=== PATIENT | male | born 1995 | race Caucasian/White ===

== ENCOUNTER 2025-06-23 12:21 | Emergency (ER) | payer SELFPAY ==
--- NOTE | ~2025-06-23 | XR_ITS ---
CLINICAL HISTORY: dizziness lightheadedness Two views of the chest. COMPARISON: None provided. FINDINGS: Normal heart and mediastinal contours. No consolidation. No pleural effusion or pneumothorax. No acute fracture. IMPRESSION: 1. No consolidation. This document has been electronically signed by: Robbin Gilbert MD on 06/23/2025 13:38:39
--- NOTE | 2025-06-23 12:23 | ECG_ITS ---
Test Reason : DIZZINESS Blood Pressure : */* mmHG Vent. Rate : 95 BPM Atrial Rate : 95 BPM P-R Int : 132 ms QRS Dur : 78 ms QT Int : 314 ms P-R-T Axes : 78 86 34 degrees QTcB Int : 394 ms Normal sinus rhythm T wave abnormality, consider inferior ischemia Abnormal ECG No previous ECGs available Referred By: Generic ED Physician Electronically Signed By: David Nunn
--- NOTE | 2025-06-23 12:46 | ED.GENADULT ---
HPI - General Adult General Chief complaint: Dizziness Stated complaint: dizzy, faint, severe anxiety Time Seen by Provider: 06/23/25 13:48 Source: patient, RN notes reviewed and old records reviewed Mode of arrival: ambulatory Limitations: no limitations History of Present Illness ED Provider: Justin [facility] narrative: Patient is a 30-year-old male with history of anxiety presenting to the emergency department with complaint of lightheadedness which began around 930 this morning. He admits to drinking a 6 pack of beer while out in the [employer] yesterday. Also had heavier drinking over the weekend. 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 Denies any recent tick bites or rashes. States he is unsure how much his anxiety is contributing to his symptoms. Was recently prescribed medication for his anxiety but it caused GI upset so he has not been taking his prescriber to change medications for managing his anxiety. He denies any chest pain or palpitations. Denies fevers. Denies body aches or joint pain. States symptoms feel similar to previous episodes of dehydration. MD complaint: lightheaded Onset (ago): hour(s) Related Data Allergies Allergy/AdvReac Type Severity Reaction Status Date / Time No Known Allergies Allergy Verified 06/23/25 12:48 Review of Systems Review of Systems: As per HPI Yes all other systems are reviewed and are negative Constitutional: Constitutional: Reports as per HPI [facility] Social History Social History Alcohol intake: current Smoked in Last 30 Days: No Use of substances other than those prescribed or required for medical reasons: No Advance Directives: No Advance Directives Information Provided: Yes Do you have a plan to hurt others: No Plan Physical Exam ED Vital Signs: Vital Signs - 24 hr 06/23/25 12:47 06/23/25 14:27 06/23/25 15:03 Temperature 97.3 F 98.5 F Pulse Rate 80 73 78 Respiratory Rate 14 16 18 Blood Pressure 132/78 127/79 119/72 Pulse Oximetry 97 99 98 Oxygen Delivery Method Room Air Room Air Room Air BMI result Body Mass Index 21.3 Vital signs have been reviewed and appear to be correct. Blood pressure normal. Heart rate normal. Respiratory rate normal. Temperature normal. Oxygen saturation normal. Const General: cooperative, healthy appearing and no acute distress Orientation/consciousness: oriented to person, oriented to place, oriented to time and patient oriented x3 Limitations: no limitations [facility] Head: Yes normocephalic and Yes atraumatic Ears: external ears normal General nose exam: Normal external nose present Face and sinus: Yes face symmetric Mouth: oropharynx normal and moist mucous membranes Throat: Yes uvula midline Eyes Pupils: Equal, round and reactive pupils present Neck Neck: Yes normal visual inspection and Yes supple Resp Effort & Inspection: normal respiratory effort and able to speak in complete sentences Auscultation: clear to auscultation bilaterally Cardio Rate: regular rate Rhythm: regular rhythm Heart sounds: S1 normal heart sound present and S2 normal heart sound present GI Palpation (GI): Soft to palpation and nontender Auscultation: normoactive bowel sounds General: Yes no CVA tenderness Back/Spine/Pelvis Back: no CVA tenderness Skin General skin exam: elasticity normal and turgor normal Neuro General: oriented to person, oriented to place, oriented to time, patient oriented x3, moves all extremities, no focal motor deficits and CN's II-XI intact bilaterally Cranial nerves: Yes Equal, round and reactive pupils present Cognition (Neuro): normal cognition Extrem General: Yes full ROM, Yes no pedal edema and Yes no calf tenderness Psych Mental Status: mental status grossly normal Affect: normal affect Thought process: Normal thought process present Course Course Course Narrative: Rapid medical examination performed in triage by Danielle Nichols PA-C. Patient is a 30 year old assigned male at presenting to the emergency department with dizziness and lightheadedness. Patient states starting this morning he began to feel dizzy / lightheaded. Patient denies any pain. States that he has not eaten much today and does endorse drinking a 6 pack of beer yesterday so he is concerned he may be dehydrated. Detailed physical exam and review of systems are deferred to the child daycare worker. EKG, labs, swabs, and imaging ordered. Patient placed back in the waiting room pending room availability and results. Medications Administered Discontinued Medications Generic Name Dose Route Start Last Admin Trade Name Freq PRN Reason Stop Dose Admin Hydroxyzine HCl 25 mg 06/23/25 14:38 06/23/25 15:02 Hydroxyzine Hcl 25 Mg Tablet PO 06/23/25 14:39 25 mg ONCE ONE Administration Sodium Chloride 1,000 mls @ 999 mls/hr 06/23/25 14:15 06/23/25 15:02 Ns IV 06/23/25 15:15 0 mls/hr .Q1H1M BI Infusion Medical Decision Making Medical Decision Making [facility] Narrative: Patient is a 30-year-old male with history of anxiety presenting to the emergency department with complaint of lightheadedness which began around 930 this morning. On exam patient is awake, A+Ox3, VS WNL, afebrile, normal neurological exam without focal deficits, physical exam findings as above. Given reported symptoms and physical exam findings, initial differential includes but is not limited to cardiac arrhythmia, anemia, electrolyte abnormality, dehydration. Less likely tick-borne illness but will check tick panel while patient is here in the ED given his high rate of exposure. Patient requesting medication for anxiety, will order hydroxyzine. Labs notable for mildly elevated transaminases, likely due to recent alcohol use. EKG shows normal sinus rhythm. Symptoms improved with IV fluids. Feel patient is stable for discharge at this time. Advised follow up with his prescriber to straighten out his anxiety medication. Return precautions discussed. Advised drinking plenty of fluids, especially fluids with electrolytes. Patient verbalized understanding of and agreement with plan. He will be contact with any positive results of tick panel. Differential Diagnosis Differential Diagnoses: The differential diagnosis associated with the presentation includes As per [facility] Admission/Observation Consideration of admission/observation: Escalation of care including admission/observation considered Patient would have been admitted to the hospital and transferred to appropriate facility had their clinical presentation warranted hospital admission. Lab Data [facility] Lab Attestation statement: I reviewed the patient's lab results. as per [facility] 06/23/25 12:56 06/23/25 12:56 Labs: Lab Results 06/23/25 06/23/25 Range/Units 12:56 13:02 WBC 7.3 (4.8-10.8) X10*3/uL RBC 5.45 (4.60-5.80) X10*6/uL Hgb 16.6 (14.0-18.0) g/dl Hct 47.3 (42.0-52.0) % MCV 86.8 (80.0-98.0) fL MCH 30.5 (27.0-33.0) pg MCHC 35.1 (31.0-36.0) g/dl RDW 11.8 (11.0-16.0) % Plt Count 255 (160-400) X10*3/uL MPV 9.3 L (9.4-12.4) fL Immature Gran % (Auto) 0.4 (0.0-0.4) % Neut % (Auto) 73.1 H (45-73) % Lymph % (Auto) 16.3 L (20-40) % [place] % (Auto) 9.3 (2-11) % Eos % (Auto) 0.4 (0-4) % Baso % (Auto) 0.5 (0-2) % Lymph # (Auto) 1.2 (1.2-4.9) X10*3/uL [place] # (Auto) 0.7 (0.1-1.2) X10*3/uL Eos # (Auto) 0.0 (0.0-0.4) X10*3/uL Baso # (Auto) 0.0 (0.0-0.2) X10*3/uL Abs Immat Gran (auto) 0.03 (0.00-0.03) X10*3/uL Absolute Neuts (auto) 5.3 (2.0-8.3) x10*3/uL Absolute Nucleated RBC 0.000 (0.0-0.012) X10*3/uL Nucleated RBC % (auto) 0.0 (0.0-0.2) /100WBC PT 11.2 (10.9-12.4) SEC INR 1.0 (0.9-1.1) Sodium 137 (135-145) mmol/L Potassium 3.8 (3.3-5.1) mmol/L Chloride 101 (96-108) mmol/L Carbon Dioxide 25 (22-29) mmol/L Anion Gap 15 (12-20) BUN 15 (9-16) mg/dL Creatinine 1.20 (0.5-1.4) mg/dL Estim Creat Clear Calc 81.5 Estimated GFR > 60 Random Glucose 154 H (60-115) mg/dL Calcium 10.2 (8.4-10.2) mg/dL Magnesium 1.9 (1.6-2.6) mg/dL Total Bilirubin 1.1 H (0.0-1.0) mg/dL AST 53 H (5-37) U/L ALT 68 H (0-40) U/L Alkaline Phosphatase 75 (39-117) U/L Troponin I High Sens < 2.7 (<3.5-35.0) ng/L Total Protein 8.8 H (6.5-8.0) g/dL Albumin 5.4 H (3.5-5.0) g/dL Lipase 27 (8-78) U/L Urine Color Yellow Urine Appearance Clear Urine pH 8.5 (5.0-9.0) Ur Specific [place] <= 1.005 (1.005-1.025) Urine Protein Negative (Neg-Trace) mg/dL Urine Glucose (UA) Negative (Negative) mg/dL Urine Ketones Negative (Negative) mg/dL Urine Blood Negative (Negative) Urine Nitrite Negative (Negative) Ur Leukocyte Esterase Negative (Negative) Independent Interpretation I performed an independent interpretation of an: EKG (Normal sinus rhythm, rate 95 beats per minute, normal UT interval and QTC.) and Plain X-Ray Interpretation: Chest x-ray without evidence of pneumonia Radiology Impression Discussion of test interpretation with radiology: I have reviewed the radiologist's reading. Radiologist Impression: CLINICAL HISTORY: dizziness lightheadedness Two views of the chest. COMPARISON: None provided. FINDINGS: Normal heart and mediastinal contours. No consolidation. No pleural effusion or pneumothorax. No acute fracture. IMPRESSION: 1. No consolidation. External Record Review External record reviewed: Inpatient record, Office record and Outpatient record Discharge Plan Discharge Clinical Impression: Light-headedness, Anxiety Patient Disposition: Home, Self-Care Instructions: Lyme Disease (ED), Lightheadedness (ED), Anxiety (ED) Additional Instructions: You were evaluated in the emergency department today for lightheadedness. Your evaluation including EKG, labs, and chest x-ray did not show evidence of conditions requiring emergent medical treatment at this time. You were tested for tick-borne illnesses and the results are pending. You will be contacted with any positive results. Be sure to drink plenty of fluids, especially fluids with electrolytes. Follow up with your prescriber about changing your anxiety medication. Return to the emergency department if you develop chest pain, shortness of breath or difficulty breathing, worsening dizziness or lightheadedness, fainting or any other new or concerning symptoms. Print Language: British
[2025-06-23 12:47] VITALS: BP 132/78; PULSE 80; RESP 14; TEMP 36.3; O2SAT 97; BMI 21.3
[2025-06-23 13:03] LABS: MANUAL DIFF FLAG NO
[2025-06-23 13:04] LABS: Hematocrit 47.3 % (42.0-52.0); Hemoglobin 16.6 g/dl (14.0-18.0); Imm Gran Abs Auto 0.03 X10*3/uL (0.00-0.03); Imm Gran Pct Auto 0.4 % (0.0-0.4); Lymphocytes Absolute Auto 1.2 X10*3/uL (1.2-4.9); Mean Corpuscular HGB Conc 35.1 g/dl (31.0-36.0); Mean Corpuscular Hemoglobin 30.5 pg (27.0-33.0); Mean Corpuscular Volume 86.8 fL (80.0-98.0); NRBC Abs Auto 0.000 X10*3/uL (0.0-0.012); NRBC Pct Auto 0.0 /100WBC (0.0-0.2); Platelet Count 255 X10*3/uL (160-400); Red Blood Count 5.45 X10*6/uL (4.60-5.80); White Blood Count 7.3 X10*3/uL (4.8-10.8)
[2025-06-23 13:10] LABS: INTERNATIONAL NORM RATIO 1.0 (0.9-1.1); Prothrombin Time 11.2 SEC (10.9-12.4)
[2025-06-23 13:18] LABS: Alanine Aminotransferase 68 U/L (0-40); Albumin Level 5.4 g/dL (3.5-5.0); Alkaline Phosphatase 75 U/L (39-117); Anion Gap 15 (12-20); Aspartate Amino Transferase 53 U/L (5-37); Blood Urea Nitrogen 15 mg/dL (9-16); Calcium 10.2 mg/dL (8.4-10.2); Carbon Dioxide 25 mmol/L (22-29); Chloride 101 mmol/L (96-108); Creatinine Clr Calc Pharmacy 81.5; Estimated Glomerular Filt Rate > 60; Lipase 27 U/L (8-78); Magnesium 1.9 mg/dL (1.6-2.6); Potassium 3.8 mmol/L (3.3-5.1); Sodium 137 mmol/L (135-145); Total Protein 8.8 g/dL (6.5-8.0)
[2025-06-23 13:21] LABS: Appearance Urine Clear; Glucose Urine UA Negative (Negative); PH 8.5 (5.0-9.0); Specific Gravity - Urine <= 1.005 (1.005-1.025)
[2025-06-23 13:26] LABS: Troponin-I High Sensitivity < 2.7 ng/L (<3.5-35.0)
[2025-06-23 14:27] VITALS: BP 127/79; PULSE 73; RESP 16; TEMP 36.9; O2SAT 99
--- NOTE | 2025-06-23 14:33 | PC.NURSE ---
states dizziness has improved with PO fluids. hasn't noted a tick bit or rash. c/o anxiety and requesting meds.
[2025-06-23 15:03] VITALS: BP 119/72; PULSE 78; RESP 18; O2SAT 98
[2025-06-23 16:25] VITALS: BP 119/72; PULSE 78; RESP 18; TEMP 36.3; O2SAT 98
[2025-06-23 16:26] VITALS: BP 123/75; PULSE 76; RESP 16; TEMP 37.2; O2SAT 100
[2025-06-24 17:18] LABS: Lyme Abs Screen <0.90 index
[2025-06-25 12:38] LABS: A. Phagocytphilium DNA,RT-PCR NOT DETECTED (NOT DETECTED); Babesia Microti DNA, RT-PCR NOT DETECTED (NOT DETECTED); Borrelia Miyamotoi,DNA RT-PCR NOT DETECTED (NOT DETECTED); E.Chaffeensis DNA RT-PCR NOT DETECTED (NOT DETECTED); Lyme(Borrelia ssp)DNA RT-PCR NOT DETECTED (NOT DETECTED)
== END 2025-06-23 16:26 | disposition home or self-care (01) ==
PROVIDERS: Physician Assistant Medical; Registered Nurse Emergency; Emergency Provider Emergency Medicine
DX: R42 Dizziness and giddiness (principal); F41.9 Anxiety disorder, unspecified
CPT/HCPCS: 36415; 71046; 80053; 81003; 83690; 83735; 84484; 85025; 85610; 86617; 86618; 87468; 87469; 87478; 87484; 87798; 93005; 99284; 99285

== ENCOUNTER → 2025-06-23 12:23 | Outpatient (BNV) | payer SELFPAY | PROVIDERS: Emergency Provider Emergency Medicine; Visit Provider Internal Medicine Cardiovascular Disease | DX: R94.31 Abnormal electrocardiogram [ECG] [EKG] (principal); R42 Dizziness and giddiness | CPT/HCPCS: 93010 ==

== ENCOUNTER → 2025-06-23 12:47 | Outpatient (BNV) | payer SELFPAY | PROVIDERS: Emergency Provider Emergency Medicine; Visit Provider Radiology Diagnostic Radiology | DX: R42 Dizziness and giddiness (principal) | CPT/HCPCS: 71046 ==